=== PATIENT | male | born 1985 | race Caucasian/White ===

== ENCOUNTER 2019-07-09 15:13 | Emergency (ER) | payer OTHER ==
[~2019-07-09] VITALS: Ht 182.9 cm; Wt 113.8 kg
--- NOTE | 2019-07-09 17:46 | NUR ---
AMBULATORY TO ROOM AT THIS TIME
[2019-07-09 18:24] LABS: BASOPHILS # (AUTO) 0.05 x10^3/uL (0-0.1); BASOPHILS % (AUTO) 1 % (0-1); EOSINOPHILS # (AUTO) 0.14 x10^3/uL (0-0.4); EOSINOPHILS % (AUTO) 2 % (1-7); LYMPHOCYTES % (AUTO) 41 % (22-44); MD NO; MEAN CORPUSCULAR HEMOGLOBIN 25.9 pg (27.5-34.5); MEAN CORPUSCULAR HGB CONC 32.9 g/dL (33.2-36.2); MEAN CORPUSCULAR VOLUME 78.8 fL (81-97); MEAN PLATELET VOLUME 10.2 fL (7.4-10.4); MONOCYTES # (AUTO) 0.57 x10^3/uL (0.2-0.8); MONOCYTES % (AUTO) 8 % (2-9); NEUTROPHILS % (AUTO) 48 % (42-75); PLATELET COUNT 243 x10^3/uL (130-400); RED BLOOD COUNT 5.94 x10^6/uL (4.38-5.82); RED CELL DISTRIBUTION WIDTH 13.3 % (9.4-14.8)
[2019-07-09] MEDS ORDERED: MORPHINE SULFATE 4 MG/ML, 1ML ONE (18:26)
[2019-07-09] MEDS ORDERED: ONDANSETRON 2MG/ML, 2ML ONE (18:26)
[2019-07-09] MEDS ORDERED: SODIUM CHLORIDE FLUSH 10ML SYR IVF ONE (18:30)
[2019-07-09] MEDS ORDERED: ONDANSETRON 2MG/ML, 2ML IVPush ONE (18:30)
[2019-07-09] MEDS ORDERED: MORPHINE SULFATE 4 MG/ML, 1ML IVPush PRN (18:30)
--- NOTE | 2019-07-09 18:31 | NUR ---
PT PRESENTING TO ER FOR R LOWER QUAD PAIN, NO N/V/D. LBM TODAY. MD TO BEDSIDE FOR ASSESSMENT. ORDERS RECEIVED. IV PLACED. VSS AT THIS TIME. CALL LIGHT WITHIN REACH
--- NOTE | 2019-07-09 18:33 | NUR ---
PT MEDICATED FOR PAIN PER MAR. UA COLLECTED AND SENT. VSS AT THIS TIME. CALL LIGHT WITHIN REACH
[2019-07-09 18:40] LABS: ALANINE AMINOTRANSFERASE 37 U/L (12-78); ALBUMIN 4.2 g/dL (3.4-5.0); ANION GAP 8 mmol/L (5-15); CALCIUM 8.8 mg/dL (8.5-10.1); CHLORIDE 108 mmol/L (98-107); CREATININE 1.26 mg/dL (0.7-1.3)
[2019-07-09 18:42] LABS: ALKALINE PHOSPHATASE 60 U/L (45-117); BILIRUBIN,TOTAL 0.2 mg/dL (0.2-1.0); TOTAL PROTEIN 7.5 g/dL (6.4-8.2)
[2019-07-09 18:47] LABS: MICROSCOPIC AUTO
[2019-07-09 18:49] LABS: CULTURE INDICATED? YES
--- NOTE | 2019-07-09 18:50 | NUR ---
PT BEING TAKEN TO CT
[2019-07-09] MEDS ORDERED: OMNIPAQUE 350 MG/ML, 100ML BOTTLE ONE (19:05)
--- NOTE | 2019-07-09 19:10 | NUR ---
ALL RESULTS BACKA T THIS TIME, CHART UP FOR RECHECK
--- NOTE | 2019-07-09 19:19 | NUR ---
REPORT GIVEN TO DARNELL PUCKETT
[2019-07-09 20:03] VITALS: BP 132/60
== END 2019-07-09 20:06 | disposition home or self-care (01) ==
LOC: ED 20:02
DX: R10.31 Right lower quadrant pain (principal); Z87.891 Personal history of nicotine dependence
CPT/HCPCS: 36415; 74177; 80053; 81001; 83690; 85025; 87086; 96374; 96375; 99284; J2270; J2405; Q9967

== ENCOUNTER 2020-01-07 16:21 | Outpatient (CLI) | payer OTHER | END 2020-01-07 23:59 | disposition home or self-care (01) | LOC: RAD 16:21 | PROVIDERS: ATTEND Physician Assistant | DX: M25.531 Pain in right wrist (principal) ==